=== PATIENT | male | born 1965 | race Caucasian/White ===

== ENCOUNTER 2021-12-16 10:32 | Inpatient (IN) | payer OTHER ==
[~2021-12-16] VITALS: Ht 170.2 cm; Wt 92.6 kg
[2021-12-16] MEDS ORDERED: KETOROLAC TROMETHAMINE 30 MG/ML VIAL IVP ONE (10:45)
[2021-12-16] MEDS ORDERED: ONDANSETRON HCL 4 MG/2 ML VIAL IVP ONE (10:45)
[2021-12-16] MEDS ORDERED: IOHEXOL 350 MG/ML 150 ML VIAL ONE (11:42)
[2021-12-16] MEDS ORDERED: SODIUM CHLORIDE 0.9% 0 ML ONE (11:43)
[2021-12-16 11:56] LABS: D-DIMER 1.28 mg/L FEU (0.00-0.50); INR 1.1 (0.9-1.1); PROTHROMBIN TIME 11.2 SEC (9.4-11.6)
[2021-12-16 11:57] LABS: BASOPHILS % (AUTO) 0.4 % (0.0-2.0); EOSINOPHILS % (AUTO) 0.5 % (1.0-6.0); HEMATOCRIT 37.2 % (41-53); HEMOGLOBIN 12.1 g/dL (13.5-17.5); LYMPHOCYTES # (AUTO) 1.6 K/uL (1.0-4.8); LYMPHOCYTES % (AUTO) 17.5 % (22.0-44.0); MEAN CORPUSCULAR HEMOGLOBIN 24.8 pg (26.0-34.0); MEAN CORPUSCULAR HGB CONC 32.4 G/dL (31.0-37.0); MEAN CORPUSCULAR VOLUME 77 fL (80-100); MONOCYTES # (AUTO) 0.6 K/uL (0.1-1.0); MONOCYTES % (AUTO) 6.5 % (2.0-9.0); NEUTROPHILS # (AUTO) 6.8 K/uL (1.8-7.7); NEUTROPHILS % (AUTO) 75.1 % (40.0-70.0); PLATELET COUNT (AUTO) 230 K/uL (150-450); RED BLOOD CELL COUNT(AUTO) 4.86 MIL/uL (4.50-5.90); RED CELL DISTRIBUTION WIDTH 15.2 % (11.5-14.5)
[2021-12-16 11:58] LABS: CALCIUM, TOTAL 8.7 mg/dL (8.8-10.5); CREATININE 6.17 mg/dL (0.60-1.30); POTASSIUM 4.2 mmol/L (3.5-5.1)
[2021-12-16 12:06] LABS: ALBUMIN 3.4 g/dL (3.4-5.0); BILIRUBIN,TOTAL 0.3 mg/dL (0.1-1.0); TOTAL PROTEIN, SERUM 8.1 g/dL (6.4-8.2)
[2021-12-16 12:16] LABS: COVID AG,FIA SOURCE NASOPHARYNGEAL
[2021-12-16 12:35] LABS: MAGNESIUM 1.7 mg/dL (1.80-2.40)
[2021-12-16 12:44] LABS: APPEARANCE,URINE CLEAR (CLEAR); BILIRUBIN,URINE NEGATIVE (NEGATIVE); GLUCOSE, URINE (UA) 100 mg/dL (NEGATIVE); KETONES,URINE NEGATIVE (NEGATIVE); LEUKOCYTE ESTERASE ,URINE NEGATIVE (NEGATIVE); NITRATE,URINE NEGATIVE (NEGATIVE); OCCULT BLOOD,URINE MODERATE (NEGATIVE); PH,URINE 5.5 (5.0-8.0); PROTEIN,URINE SEE CONFIRM (NEGATIVE); UROBILINOGEN,URINE 0.2 mg/dL (<=1.0)
[2021-12-16] MEDS ORDERED: MAGNESIUM SULFATE 1 GM in DEXTROSE 5%-WATER 50 ML IV ONE (13:00)
[2021-12-16] MEDS ORDERED: ASPIRIN 325 MG TABLET PO ONE (13:15)
[2021-12-16 13:25] LABS: SULFOSALICYLIC ACID,URINE 4+ (Negative)
[2021-12-16 13:27] LABS: BACTERIA,URINE None Seen /HPF (None Seen); RBC,URINE 0-2 /HPF (0-2); SQUAMOUS EPITHELIAL CELL,UR Few /LPF (None Seen); WBC,URINE None Seen /HPF (0-5)
[2021-12-16] MEDS ORDERED: ONDANSETRON HCL 4 MG/2 ML VIAL IVP PRN ×2 (13:45→15:00)
[2021-12-16] MEDS ORDERED: 0.9% SODIUM CHLORIDE 10 ML SYRINGE IVP PRN (13:45)
[2021-12-16] MEDS ORDERED: ACETAMINOPHEN 325 MG TABLET PO PRN ×2 (13:45→15:00)
[2021-12-16] MEDS ORDERED: PENTETATE DTPA TC99M/MCL ISOTOPE 1 EA INJ INJ ONE (14:00)
[2021-12-16] MEDS ORDERED: MAA ALBUMIN AGGREGATED TC99M/UD<10MCL ISOTOPE 1 EA INJ INJ ONE (14:25)
[2021-12-16] MEDS ORDERED: BISACODYL 10 MG RECTAL RECTAL SUPPOSITORY PR PRN (15:00)
[2021-12-16] MEDS ORDERED: MAGNESIUM HYDROXIDE SUSPENSION 30 ML UDCUP PO PRN (15:00)
[2021-12-16] MEDS ORDERED: ZOLPIDEM TARTRATE 5 MG TABLET PO PRN (15:00)
[2021-12-16] MEDS ORDERED: MORPHINE SULFATE 2 MG/ML SYRINGE IVP PRN (15:00)
[2021-12-16] MEDS: HYDROCODONE/ACETAMINOPHEN 5-325 MG TABLET PO PRN (15:42)
[2021-12-16] MEDS: HEPARIN SODIUM,PORCINE 5,000 UNITS/ML VIAL SQ SCH (15:42)
[2021-12-16 16:35] VITALS: BP 183/97
[2021-12-16 19:23] VITALS: BP 153/94
[2021-12-16] MEDS: DOCUSATE SODIUM 100 MG CAPSULE PO SCH (22:04)
[2021-12-17 01:02] VITALS: BP 145/86
[2021-12-17] MEDS: HEPARIN SODIUM,PORCINE 5,000 UNITS/ML VIAL SQ SCH ×4 (01:18→23:37)
[2021-12-17 04:33] VITALS: BP 156/88
[2021-12-17 04:47] LABS: BASOPHILS % (AUTO) 0.8 % (0.0-2.0); HEMATOCRIT 36.6 % (41-53); HEMOGLOBIN 11.8 g/dL (13.5-17.5); LYMPHOCYTES # (AUTO) 2.5 K/uL (1.0-4.8); LYMPHOCYTES % (AUTO) 31.9 % (22.0-44.0); MEAN CORPUSCULAR HEMOGLOBIN 25.1 pg (26.0-34.0); MEAN CORPUSCULAR HGB CONC 32.4 G/dL (31.0-37.0); MEAN CORPUSCULAR VOLUME 78 fL (80-100); MONOCYTES # (AUTO) 0.6 K/uL (0.1-1.0); NEUTROPHILS # (AUTO) 4.6 K/uL (1.8-7.7); NEUTROPHILS % (AUTO) 58.3 % (40.0-70.0); PLATELET COUNT (AUTO) 199 K/uL (150-450); RED BLOOD CELL COUNT(AUTO) 4.71 MIL/uL (4.50-5.90); RED CELL DISTRIBUTION WIDTH 14.5 % (11.5-14.5)
[2021-12-17 05:02] LABS: ALBUMIN 2.9 g/dL (3.4-5.0); BILIRUBIN,TOTAL 0.4 mg/dL (0.1-1.0); CREATININE 6.41 mg/dL (0.60-1.30); POTASSIUM 4.2 mmol/L (3.5-5.1); TOTAL PROTEIN, SERUM 6.8 g/dL (6.4-8.2)
[2021-12-17 07:58] VITALS: BP 183/99
[2021-12-17] MEDS: PANTOPRAZOLE SODIUM 40 MG DR TABLET PO SCH (08:42)
[2021-12-17] MEDS: HYDROCODONE/ACETAMINOPHEN 5-325 MG TABLET PO PRN (08:43)
[2021-12-17] MEDS: DOCUSATE SODIUM 100 MG CAPSULE PO SCH ×2 (08:43→21:02)
[2021-12-17 11:38] VITALS: BP 150/88
[2021-12-17] MEDS: AmLODIPine BESYLATE 10 MG TABLET PO SCH (11:54)
[2021-12-17] MEDS ORDERED: CloNIDine HCL 0.1 MG TABLET PO PRN (13:15)
[2021-12-17 15:46] VITALS: BP 148/88
[2021-12-17 19:00] LABS: APPEARANCE,URINE CLEAR (CLEAR); BILIRUBIN,URINE NEGATIVE (NEGATIVE); GLUCOSE, URINE (UA) 100 mg/dL (NEGATIVE); KETONES,URINE NEGATIVE (NEGATIVE); LEUKOCYTE ESTERASE ,URINE NEGATIVE (NEGATIVE); NITRATE,URINE NEGATIVE (NEGATIVE); OCCULT BLOOD,URINE SMALL (NEGATIVE); PH,URINE 5.5 (5.0-8.0); PROTEIN,URINE SEE CONFIRM (NEGATIVE); UROBILINOGEN,URINE 0.2 mg/dL (<=1.0)
[2021-12-17 19:02] LABS: CREATININE,URINE RANDOM 89.1 mg/dL (30.0-125.0); PROTEIN,URINE RANDOM 236 mg/dL (0-11.9); SODIUM,URINE RANDOM 67 mmol/l (20-110); UREA NITROGEN,URINE RANDOM 649 mg/dL (350-1000)
[2021-12-17 19:07] LABS: SULFOSALICYLIC ACID,URINE 2+ (Negative)
[2021-12-17 19:08] LABS: BACTERIA,URINE None Seen /HPF (None Seen); RBC,URINE 0-2 /HPF (0-2); WBC,URINE 0-2 /HPF (0-5)
[2021-12-17 20:18] VITALS: BP 149/84
[2021-12-18 00:11] VITALS: BP 151/90
[2021-12-18 04:20] VITALS: BP 141/78
[2021-12-18 07:44] VITALS: BP 150/88
[2021-12-18] MEDS: DOCUSATE SODIUM 100 MG CAPSULE PO SCH ×2 (08:25→22:19)
[2021-12-18] MEDS: HEPARIN SODIUM,PORCINE 5,000 UNITS/ML VIAL SQ SCH (08:26)
[2021-12-18] MEDS: PANTOPRAZOLE SODIUM 40 MG DR TABLET PO SCH (08:26)
[2021-12-18] MEDS: AmLODIPine BESYLATE 10 MG TABLET PO SCH (08:26)
[2021-12-18 09:56] LABS: EOSINOPHILS % (AUTO) 1.5 % (1.0-6.0); HEMATOCRIT 37.4 % (41-53); HEMOGLOBIN 12.1 g/dL (13.5-17.5); LYMPHOCYTES # (AUTO) 1.4 K/uL (1.0-4.8); LYMPHOCYTES % (AUTO) 15.2 % (22.0-44.0); MEAN CORPUSCULAR HGB CONC 32.3 G/dL (31.0-37.0); MEAN CORPUSCULAR VOLUME 77 fL (80-100); MONOCYTES # (AUTO) 0.6 K/uL (0.1-1.0); MONOCYTES % (AUTO) 6.1 % (2.0-9.0); NEUTROPHILS # (AUTO) 6.8 K/uL (1.8-7.7); NEUTROPHILS % (AUTO) 76.2 % (40.0-70.0); PLATELET COUNT (AUTO) 190 K/uL (150-450); RED BLOOD CELL COUNT(AUTO) 4.83 MIL/uL (4.50-5.90); RED CELL DISTRIBUTION WIDTH 14.6 % (11.5-14.5)
[2021-12-18 11:15] VITALS: BP 160/90
[2021-12-18] MEDS ORDERED: HYDROCORTISONE 25 MG RECTAL SUPPOSITORY PR PRN (13:00)
[2021-12-18] MEDS: METOPROLOL SUCCINATE 50 MG ER TABLET PO SCH (13:35)
[2021-12-18 16:03] VITALS: BP 149/88
[2021-12-18] MEDS: LOSARTAN POTASSIUM 25 MG TABLET PO SCH (16:15)
[2021-12-18 20:00] VITALS: BP 153/97
[2021-12-19] VITALS (7 sets, daily range): BP systolic 125–168; BP diastolic 60–97
[2021-12-19] MEDS: METOPROLOL SUCCINATE 50 MG ER TABLET PO SCH (05:51)
[2021-12-19] MEDS: AmLODIPine BESYLATE 10 MG TABLET PO SCH (05:51)
[2021-12-19] MEDS: LOSARTAN POTASSIUM 25 MG TABLET PO SCH (05:51)
[2021-12-19 07:21] LABS: BASOPHILS % (AUTO) 0.4 % (0.0-2.0); EOSINOPHILS % (AUTO) 2.3 % (1.0-6.0); HEMATOCRIT 35.8 % (41-53); HEMOGLOBIN 11.8 g/dL (13.5-17.5); LYMPHOCYTES # (AUTO) 1.9 K/uL (1.0-4.8); LYMPHOCYTES % (AUTO) 22.8 % (22.0-44.0); MEAN CORPUSCULAR HEMOGLOBIN 25.4 pg (26.0-34.0); MEAN CORPUSCULAR VOLUME 77 fL (80-100); MONOCYTES # (AUTO) 0.6 K/uL (0.1-1.0); MONOCYTES % (AUTO) 6.5 % (2.0-9.0); NEUTROPHILS # (AUTO) 5.8 K/uL (1.8-7.7); PLATELET COUNT (AUTO) 212 K/uL (150-450); RED BLOOD CELL COUNT(AUTO) 4.64 MIL/uL (4.50-5.90); RED CELL DISTRIBUTION WIDTH 14.7 % (11.5-14.5)
[2021-12-19 07:24] LABS: HEMOGLOBIN A1C 6.5 % (3.8-5.6)
[2021-12-19 07:38] LABS: ALBUMIN 2.8 g/dL (3.4-5.0); BILIRUBIN,TOTAL 0.3 mg/dL (0.1-1.0); CALCIUM, TOTAL 7.9 mg/dL (8.8-10.5); CREATININE 5.94 mg/dL (0.60-1.30); POTASSIUM 4.2 mmol/L (3.5-5.1); TOTAL PROTEIN, SERUM 7.1 g/dL (6.4-8.2)
[2021-12-19] MEDS: PANTOPRAZOLE SODIUM 40 MG DR TABLET PO SCH (08:39)
[2021-12-19] MEDS: DOCUSATE SODIUM 100 MG CAPSULE PO SCH ×2 (08:40→21:25)
[2021-12-19] MEDS: HydrALAZINE HCL 25 MG TABLET PO SCH (21:25)
[2021-12-20] VITALS (7 sets, daily range): BP systolic 111–162; BP diastolic 66–90
[2021-12-20] MEDS: AmLODIPine BESYLATE 10 MG TABLET PO SCH (08:12)
[2021-12-20] MEDS: PANTOPRAZOLE SODIUM 40 MG DR TABLET PO SCH (08:12)
[2021-12-20] MEDS: HydrALAZINE HCL 25 MG TABLET PO SCH ×2 (08:12→20:57)
[2021-12-20] MEDS: DOCUSATE SODIUM 100 MG CAPSULE PO SCH ×2 (08:12→20:57)
[2021-12-20] MEDS: LOSARTAN POTASSIUM 25 MG TABLET PO SCH (08:12)
[2021-12-20] MEDS: METOPROLOL SUCCINATE 50 MG ER TABLET PO SCH (08:12)
[2021-12-20 11:10] LABS: CALCIUM, TOTAL 8.7 mg/dL (8.8-10.5); CREATININE 6.02 mg/dL (0.60-1.30); POTASSIUM 4.3 mmol/L (3.5-5.1)
[2021-12-20 22:26] LABS: GLUCOMETER DEV NAME(LOC) 5S.2B; GLUCOSE,POINT OF CARE 165 MG/DL (70-110)
[2021-12-21 04:15] VITALS: BP 132/72
[2021-12-21] MEDS: DOCUSATE SODIUM 100 MG CAPSULE PO SCH ×2 (08:13→21:27)
[2021-12-21] MEDS: METOPROLOL SUCCINATE 50 MG ER TABLET PO SCH (08:15)
[2021-12-21] MEDS: PANTOPRAZOLE SODIUM 40 MG DR TABLET PO SCH (08:15)
[2021-12-21] MEDS: HydrALAZINE HCL 25 MG TABLET PO SCH ×2 (08:15→21:27)
[2021-12-21] MEDS: AmLODIPine BESYLATE 10 MG TABLET PO SCH (08:15)
[2021-12-21] MEDS: LOSARTAN POTASSIUM 50 MG TABLET PO SCH (08:15)
[2021-12-21 08:23] VITALS: BP 160/74
[2021-12-21 12:07] LABS: ALPHA-1 (IFE & PEP) 0.2 g/dL (0.0-0.4); BETA (IFE & ELP) 1.1 g/dL (0.7-1.3); GAMMA GLOBULINS (IFE & ELP) 1.5 g/dL (0.4-1.8); IGM (IMMUNOFIXATION) 205 mg/dL (20-172)
[2021-12-21 12:24] VITALS: BP 136/83
[2021-12-21 13:11] LABS: PROTHROMBIN TIME 10.9 SEC (9.4-11.6)
[2021-12-21 16:13] VITALS: BP 144/85
[2021-12-21 20:20] VITALS: BP 149/83
[2021-12-22 00:29] VITALS: BP 124/71
[2021-12-22 04:30] VITALS: BP 113/71
[2021-12-22 05:06] LABS: ALPHA-2 URINE 10.6 %
[2021-12-22] MEDS: LOSARTAN POTASSIUM 50 MG TABLET PO SCH (08:33)
[2021-12-22] MEDS: METOPROLOL SUCCINATE 50 MG ER TABLET PO SCH (08:35)
[2021-12-22] MEDS: AmLODIPine BESYLATE 10 MG TABLET PO SCH (08:35)
[2021-12-22] MEDS: DOCUSATE SODIUM 100 MG CAPSULE PO SCH ×2 (08:35→21:00)
[2021-12-22] MEDS: HydrALAZINE HCL 25 MG TABLET PO SCH ×2 (08:36→21:36)
[2021-12-22] MEDS: PANTOPRAZOLE SODIUM 40 MG DR TABLET PO SCH (08:42)
[2021-12-22 09:05] VITALS: BP 141/72
[2021-12-22] MEDS ORDERED: FentaNYL CITRATE PF 100 MCG/2 ML VIAL ONE (12:24)
[2021-12-22] MEDS ORDERED: LIDOCAINE 1%/EPI 1:200,000/PF 10 ML VIAL ONE (12:25)
[2021-12-22] MEDS ORDERED: GELATIN SPONGE,ABSORBABLE 12-7 MM TP ONE (12:25)
[2021-12-22] MEDS ORDERED: FLUMAZENIL 0.1 MG/ML 5 ML VIAL IVP ONE (12:25)
[2021-12-22] MEDS ORDERED: MIDAZOLAM HCL 2 MG/2 ML VIAL ONE (12:25)
[2021-12-22] MEDS ORDERED: NALOXONE HCL 0.4 MG/ML VIAL ONE (12:25)
[2021-12-22 13:27] VITALS: BP 135/66
[2021-12-22] MEDS ORDERED: FentaNYL CITRATE PF 100 MCG/2 ML VIAL IVP ONE (13:45)
[2021-12-22] MEDS ORDERED: MIDAZOLAM HCL 2 MG/2 ML VIAL IVP ONE (13:45)
[2021-12-22] MEDS: HYDROCODONE/ACETAMINOPHEN 5-325 MG TABLET PO PRN (17:26)
[2021-12-22 17:51] VITALS: BP 138/81
[2021-12-22 20:12] VITALS: BP 144/80
[2021-12-23 00:17] VITALS: BP 124/68
[2021-12-23 04:09] VITALS: BP 118/64
[2021-12-23] MEDS: DOCUSATE SODIUM 100 MG CAPSULE PO SCH ×2 (08:56→19:59)
[2021-12-23] MEDS: METOPROLOL SUCCINATE 50 MG ER TABLET PO SCH (08:56)
[2021-12-23] MEDS: HydrALAZINE HCL 25 MG TABLET PO SCH ×2 (08:56→19:59)
[2021-12-23] MEDS: LOSARTAN POTASSIUM 50 MG TABLET PO SCH (08:57)
[2021-12-23] MEDS: PANTOPRAZOLE SODIUM 40 MG DR TABLET PO SCH (08:57)
[2021-12-23] MEDS: AmLODIPine BESYLATE 10 MG TABLET PO SCH (08:57)
[2021-12-23 09:16] VITALS: BP 140/86
[2021-12-23] MEDS ORDERED: MAGNESIUM OXIDE 400 MG TABLET PO ONE (11:30)
[2021-12-23 14:43] LABS: CALCIUM, TOTAL 8.4 mg/dL (8.8-10.5); CREATININE 6.66 mg/dL (0.60-1.30); MAGNESIUM 1.6 mg/dL (1.80-2.40); POTASSIUM 4.6 mmol/L (3.5-5.1)
[2021-12-23 16:02] VITALS: BP 129/77
[2021-12-23 19:33] VITALS: BP 132/84
[2021-12-23 23:45] VITALS: BP 110/64
[2021-12-24 04:33] VITALS: BP 122/69
[2021-12-24 07:07] VITALS: BP 127/78
[2021-12-24 08:05] LABS: CALCIUM, TOTAL 8.6 mg/dL (8.8-10.5); CREATININE 6.86 mg/dL (0.60-1.30); POTASSIUM 4.4 mmol/L (3.5-5.1)
[2021-12-24] MEDS: PANTOPRAZOLE SODIUM 40 MG DR TABLET PO SCH (08:45)
[2021-12-24] MEDS: HydrALAZINE HCL 25 MG TABLET PO SCH ×2 (08:45→20:12)
[2021-12-24] MEDS: DOCUSATE SODIUM 100 MG CAPSULE PO SCH ×2 (08:45→20:11)
[2021-12-24] MEDS: AmLODIPine BESYLATE 10 MG TABLET PO SCH (08:45)
[2021-12-24] MEDS: LOSARTAN POTASSIUM 50 MG TABLET PO SCH (08:45)
[2021-12-24] MEDS: METOPROLOL SUCCINATE 50 MG ER TABLET PO SCH (08:45)
[2021-12-24] MEDS ORDERED: MAGNESIUM SULFATE 1 GM in DEXTROSE 5%-WATER 50 ML IV ONE (09:45)
[2021-12-24 11:28] VITALS: BP 143/79
[2021-12-24 11:34] LABS: BASOPHILS % (AUTO) 0.4 % (0.0-2.0); EOSINOPHILS % (AUTO) 0.7 % (1.0-6.0); HEMATOCRIT 37.2 % (41-53); HEMOGLOBIN 12.3 g/dL (13.5-17.5); LYMPHOCYTES # (AUTO) 1.7 K/uL (1.0-4.8); LYMPHOCYTES % (AUTO) 22.6 % (22.0-44.0); MEAN CORPUSCULAR HEMOGLOBIN 25.4 pg (26.0-34.0); MEAN CORPUSCULAR HGB CONC 33.2 G/dL (31.0-37.0); MEAN CORPUSCULAR VOLUME 77 fL (80-100); MONOCYTES # (AUTO) 0.6 K/uL (0.1-1.0); MONOCYTES % (AUTO) 7.5 % (2.0-9.0); NEUTROPHILS # (AUTO) 5.3 K/uL (1.8-7.7); NEUTROPHILS % (AUTO) 68.8 % (40.0-70.0); PLATELET COUNT (AUTO) 189 K/uL (150-450); RED BLOOD CELL COUNT(AUTO) 4.85 MIL/uL (4.50-5.90); RED CELL DISTRIBUTION WIDTH 14.4 % (11.5-14.5)
[2021-12-24] MEDS ORDERED: SODIUM CHLORIDE 0.9% 1,000 ML ONE (12:58)
[2021-12-24 15:36] VITALS: BP 97/64
[2021-12-24 18:21] LABS: GLUCOMETER DEV NAME(LOC) 5S.1B; GLUCOSE,POINT OF CARE 188 MG/DL (70-110)
[2021-12-24] MEDS ORDERED: DEXTROSE 50%-WATER 25 GM/50 ML SYRINGE IVP PRN (19:00)
[2021-12-24] MEDS ORDERED: INSULIN LISPRO 100 UNITS/ML SQ PRN ×2 (19:00)
[2021-12-24 19:30] VITALS: BP 112/78
[2021-12-24 23:50] VITALS: BP 110/57
[2021-12-25 04:57] VITALS: BP 111/51
[2021-12-25 05:21] LABS: GLUCOMETER DEV NAME(LOC) 5S.1B; GLUCOSE,POINT OF CARE 133 MG/DL (70-110)
[2021-12-25 06:26] LABS: GLUCOMETER DEV NAME(LOC) 5N.3; GLUCOSE,POINT OF CARE 98 MG/DL (70-110)
[2021-12-25 08:37] VITALS: BP 128/79
[2021-12-25] MEDS: METOPROLOL SUCCINATE 50 MG ER TABLET PO SCH (09:00)
[2021-12-25] MEDS: DOCUSATE SODIUM 100 MG CAPSULE PO SCH ×2 (09:26→20:29)
[2021-12-25] MEDS: AmLODIPine BESYLATE 10 MG TABLET PO SCH (09:26)
[2021-12-25] MEDS: PANTOPRAZOLE SODIUM 40 MG DR TABLET PO SCH (09:26)
[2021-12-25] MEDS: LOSARTAN POTASSIUM 50 MG TABLET PO SCH (09:26)
[2021-12-25] MEDS: HydrALAZINE HCL 25 MG TABLET PO SCH ×2 (09:26→20:29)
[2021-12-25] MEDS: HYDROCODONE/ACETAMINOPHEN 5-325 MG TABLET PO PRN ×2 (11:10→15:56)
[2021-12-25 11:31] LABS: GLUCOMETER DEV NAME(LOC) 5S.1B; GLUCOSE,POINT OF CARE 147 MG/DL (70-110)
[2021-12-25 11:42] VITALS: BP 136/80
[2021-12-25 16:18] VITALS: BP 134/76
[2021-12-25 17:46] LABS: GLUCOMETER DEV NAME(LOC) 5S.2B; GLUCOSE,POINT OF CARE 103 MG/DL (70-110)
[2021-12-25 19:57] VITALS: BP 116/68
[2021-12-26 00:46] VITALS: BP 125/69
[2021-12-26 04:20] VITALS: BP 136/71
[2021-12-26 06:21] LABS: GLUCOMETER DEV NAME(LOC) 5N.3; GLUCOSE,POINT OF CARE 123 MG/DL (70-110)
[2021-12-26 06:22] LABS: GLUCOMETER DEV NAME(LOC) 5N.3; GLUCOSE,POINT OF CARE 106 MG/DL (70-110)
[2021-12-26 08:00] VITALS: BP 134/87
[2021-12-26] MEDS: HydrALAZINE HCL 25 MG TABLET PO SCH ×2 (08:13→20:08)
[2021-12-26] MEDS: HYDROCODONE/ACETAMINOPHEN 5-325 MG TABLET PO PRN (08:13)
[2021-12-26] MEDS: AmLODIPine BESYLATE 10 MG TABLET PO SCH (08:13)
[2021-12-26] MEDS: DOCUSATE SODIUM 100 MG CAPSULE PO SCH ×2 (08:13→20:08)
[2021-12-26] MEDS: METOPROLOL SUCCINATE 50 MG ER TABLET PO SCH (08:13)
[2021-12-26] MEDS: PANTOPRAZOLE SODIUM 40 MG DR TABLET PO SCH (08:13)
[2021-12-26 12:16] LABS: GLUCOMETER DEV NAME(LOC) 5N.3; GLUCOSE,POINT OF CARE 201 MG/DL (70-110)
[2021-12-26 12:21] LABS: GLUCOMETER DEV NAME(LOC) 5S.1B; GLUCOSE,POINT OF CARE 101 MG/DL (70-110)
[2021-12-26 13:03] LABS: CALCIUM, TOTAL 8.6 mg/dL (8.8-10.5); CREATININE 7.2 mg/dL (0.60-1.30); MAGNESIUM 1.8 mg/dL (1.80-2.40); PHOSPHORUS 4.4 mg/dL (2.5-4.9); POTASSIUM 5.3 mmol/L (3.5-5.1)
[2021-12-26] MEDS ORDERED: SODIUM ZIRCONIUM CYCLOSILICATE 5 GM POWDER PACKET PO ONE (13:45)
[2021-12-26 19:54] VITALS: BP 129/75
[2021-12-27 00:01] VITALS: BP 123/69
[2021-12-27 03:44] VITALS: BP 116/83
[2021-12-27 06:09] LABS: CALCIUM, TOTAL 8.6 mg/dL (8.8-10.5); CREATININE 7.18 mg/dL (0.60-1.30); MAGNESIUM 1.7 mg/dL (1.80-2.40); PHOSPHORUS 4.8 mg/dL (2.5-4.9); POTASSIUM 4.3 mmol/L (3.5-5.1)
[2021-12-27 08:13] VITALS: BP 150/86
[2021-12-27] MEDS: PANTOPRAZOLE SODIUM 40 MG DR TABLET PO SCH (09:35)
[2021-12-27] MEDS: AmLODIPine BESYLATE 10 MG TABLET PO SCH (09:35)
[2021-12-27] MEDS: METOPROLOL SUCCINATE 50 MG ER TABLET PO SCH (09:35)
[2021-12-27] MEDS: HydrALAZINE HCL 25 MG TABLET PO SCH ×2 (09:35→20:27)
[2021-12-27] MEDS: DOCUSATE SODIUM 100 MG CAPSULE PO SCH ×2 (09:35→20:27)
[2021-12-27 12:36] LABS: GLUCOMETER DEV NAME(LOC) 5S.1B; GLUCOSE,POINT OF CARE 102 MG/DL (70-110)
[2021-12-27 13:00] VITALS: BP 140/79
[2021-12-27 16:05] VITALS: BP 146/87
[2021-12-27 17:02] LABS: GLUCOMETER DEV NAME(LOC) 5N.3; GLUCOSE,POINT OF CARE 123 MG/DL (70-110)
[2021-12-27 17:02] LABS: GLUCOMETER DEV NAME(LOC) 5N.3; GLUCOSE,POINT OF CARE 99 MG/DL (70-110)
[2021-12-27 20:00] VITALS: BP 157/90
[2021-12-27 21:01] LABS: GLUCOMETER DEV NAME(LOC) 5S.1B; GLUCOSE,POINT OF CARE 93 MG/DL (70-110)
[2021-12-28] VITALS: BP 140/87
[2021-12-28 04:00] VITALS: BP 134/81
[2021-12-28 07:44] VITALS: BP 156/80
[2021-12-28] MEDS: HydrALAZINE HCL 25 MG TABLET PO SCH (09:07)
[2021-12-28] MEDS: DOCUSATE SODIUM 100 MG CAPSULE PO SCH (09:07)
[2021-12-28] MEDS: METOPROLOL SUCCINATE 50 MG ER TABLET PO SCH (09:07)
[2021-12-28] MEDS: AmLODIPine BESYLATE 10 MG TABLET PO SCH (09:08)
[2021-12-28] MEDS: PANTOPRAZOLE SODIUM 40 MG DR TABLET PO SCH (09:08)
[2021-12-28 09:11] LABS: CALCIUM, TOTAL 8.8 mg/dL (8.8-10.5); CREATININE 6.88 mg/dL (0.60-1.30); MAGNESIUM 1.7 mg/dL (1.80-2.40); PHOSPHORUS 4.5 mg/dL (2.5-4.9); POTASSIUM 4.5 mmol/L (3.5-5.1)
[2021-12-28 11:53] LABS: GLUCOMETER DEV NAME(LOC) 5N.3; GLUCOSE,POINT OF CARE 114 MG/DL (70-110)
[2021-12-28 11:53] LABS: GLUCOMETER DEV NAME(LOC) 5N.3; GLUCOSE,POINT OF CARE 103 MG/DL (70-110)
[2021-12-28 12:02] VITALS: BP 132/80
[2021-12-28 12:22] LABS: GLUCOMETER DEV NAME(LOC) 5S.1B; GLUCOSE,POINT OF CARE 114 MG/DL (70-110)
[2021-12-28] MEDS ORDERED: AMLO-258 PO (13:43)
[2021-12-28] MEDS ORDERED: HYDR25TA84 PO ×2 (13:46→13:54)
[2021-12-28] MEDS ORDERED: SITA25 PO (13:47)
[2021-12-28] MEDS ORDERED: METO-558 PO (13:47)
== END 2021-12-28 15:13 | DRG 682 ==
LOC: EMS 10:36 → 5S 13:16
PROVIDERS: ADMIT Internal Medicine; ATTEND Internal Medicine
PROC: 0TB13ZX Excision of Left Kidney, Percutaneous Approach, Diagnostic (ICD-10-PCS; principal; 2021-12-22)
DX: N17.9 Acute kidney failure, unspecified (principal); I21.A1 Myocardial infarction type 2; E85.9 Amyloidosis, unspecified; K92.1 Melena; E83.42 Hypomagnesemia; N18.9 Chronic kidney disease, unspecified; I35.1 Nonrheumatic aortic (valve) insufficiency; R79.89 Other specified abnormal findings of blood chemistry; K64.9 Unspecified hemorrhoids; I10 Essential (primary) hypertension; Z20.822 Contact with and (suspected) exposure to COVID-19; E66.9 Obesity, unspecified; M32.14 Glomerular disease in systemic lupus erythematosus; E87.5 Hyperkalemia; E11.22 Type 2 diabetes mellitus with diabetic chronic kidney disease; I25.10 Atherosclerotic heart disease of native coronary artery without angina pectoris; D64.9 Anemia, unspecified; I25.2 Old myocardial infarction; Z68.32 Body mass index [BMI] 32.0-32.9, adult
CPT/HCPCS: 50200; 71045; 74176; 76770; 76942; 78582; 80048; 80053; 81001; 81002; 81003; 82043; 82271; 82550; 82570; 82784; 82962; 83036; 83690; 83735; 83880; 83970; 84100; 84155; 84156; 84165; 84166; 84300; 84484; 84540; 85025; 85379; 85610; 85730; 86038; 86160; 86225; 86235; 86256; 86334; 86335; 87521; 88300; 93005; 93306; 99285; A9539; A9540; J1644; J1885; J2250; J2310; J2405; J3010; J3475; J3490; J7030; J7050; J7060; Q9967; 36415-L1; 36415-TC